=== PATIENT | male | born 1965 | race Caucasian/White ===

== ENCOUNTER 2016-09-04 13:24 | Emergency (ER) | payer MEDICARE ==
[2015-01-23 17:59] VITALS: BMI 27.1
[~2016-09-04 13:24] MED LIST: AMBIEN10 MG PO; ASPIRIN325 MG PO; OXY IR30 MG PO; REQUIP1 MG PO; XANAX1 MG PO
[2016-10-18] MEDS ORDERED: HYDROCODONE-APA1 TAB PO (12:39)
[2016-10-18] MEDS ORDERED: XANAX2 MG PO (12:39)
[2016-10-18] MEDS ORDERED: IMITREX100 MG PO (12:40)
[2016-10-18] MEDS ORDERED: DALIRESP500 MCG PO (12:40)
[2016-10-18] MEDS ORDERED: BREO ELLIPTA 11 EACH INH (12:41)
== END 2016-09-04 16:00 | disposition home or self-care (01) ==
LOC: D.ER 13:24
DX: M75.92 Shoulder lesion, unspecified, left shoulder (principal); M77.02 Medial epicondylitis, left elbow; Z86.73 Personal history of transient ischemic attack (TIA), and cerebral infarction without residual deficits; F17.200 Nicotine dependence, unspecified, uncomplicated

== ENCOUNTER → 2016-10-10 07:19 | Outpatient (CLI) | payer MEDICARE ==
[2015-01-23 17:59] VITALS: BMI 27.1
== END ==
LOC: D.MRI 09-27 15:00
DX: M25.512 Pain in left shoulder (principal)

== ENCOUNTER 2016-10-19 05:29 | Day surgery (SDC) | payer MEDICARE ==
[2016-10-18 13:35] LABS: APTT 21.4 SECONDS (22.8-39.4); INR 0.93 (0.85-1.17); PROTIME 12.3 SECONDS (11.6-15.0)
[2016-10-18 13:41] LABS: BASOPHILS 0.2 % (0-2); EOSINOPHILS 2.8 % (0-7); HEMATOCRIT 45.2 % (42.0-54.0); HEMOGLOBIN 15.1 g/dL (13.5-17.5); IMMATURE GRANULOCYTES 0.1 % (0-5); LYMPHOCYTES 40.7 % (15-50); MCH 33.6 pg (26.0-34.0); MCHC 33.4 g/dL (31.0-37.0); MCV 100.4 fL (80.0-100.0); MEAN PLATELET VOLUME 10.2 fL (7.4-10.4); MONOCYTES 7.5 % (2-11); NEUTROPHILS 48.7 % (40-80); PLATELET COUNT 181 10x3/uL (130-400); RDW 11.9 % (11.5-14.5); WBC 8.1 10x3/uL (4.8-10.8)
[2016-10-18 13:47] LABS: ALBUMIN 4.1 g/dL (3.4-5.0); ALKALINE PHOSPHATASE 100 U/L (46-116); ALT (SGPT) 19 U/L (10-68); BILIRUBIN - TOTAL 0.44 mg/dL (0.2-1.3); CALC OSMOLALITY 278 mosm/kg (275-300); CALCIUM 9.1 mg/dL (8.5-10.1); CARBON DIOXIDE 23.8 mmol/L (21.0-32.0); CHLORIDE - SERUM 104 mmol/L (98-107); CREATININE - SERUM 0.9 mg/dL (0.6-1.3); GLUCOSE 113 mg/dL (74-106); PROTEIN - SERUM 7.6 g/dL (6.4-8.2); SODIUM 139 mmol/L (136-145); UREA NITROGEN 13 mg/dL (7-18); eGFR NON AFRICAN AMERICAN > 90 mL/min (90-120)
[~2016-10-19] VITALS: Ht 180.3 cm; Wt 90.7 kg
[~2016-10-19 05:29] MED LIST changes: +BREO ELLIPTA 11 EACH INH; +DALIRESP500 MCG PO; +HYDROCODONE-APA1 TAB PO; +IMITREX100 MG PO; +XANAX2 MG PO
[2016-10-19 11:02] VITALS: BP 129/85; Ht 180.3 cm; Wt 90.7 kg
[2016-10-19] MEDS ORDERED: HYDROCODONE-APA1 TAB PO (15:13)
--- NOTE | 2016-10-19 15:14 | NUR ---
ANESTHESIA CONSULTED ABOUT BP AND ORDRED HYDRALIZINE IV
--- NOTE | 2016-10-27 11:39 | OP ---
PATIENT NAME: YULIYA SUNG MEDICAL RECORD: [id number] :61 [facility] DATE: SURGEON: ODESSA HAN MD DATE OF OPERATION: 10/19/2016 Orthopedic Surgery Operative Note PREOPERATIVE DIAGNOSES: Rotator cuff tear of the left shoulder, acromioclavicular arthritis of the left shoulder, and impingement syndrome of the left shoulder. POSTOPERATIVE DIAGNOSES: Rotator cuff tear of the left shoulder, acromioclavicular arthritis of the left shoulder, and impingement syndrome of the left shoulder. PROCEDURES: 1. Arthroscopic rotator cuff repair of the shoulder. 2. Arthroscopic distal clavicle excision of the left shoulder. 3. Arthroscopic subacromial decompression with acromioplasty and bursectomy. SURGEON: Odessa Han MD. ANESTHESIA: General. INTRAOPERATIVE COMPLICATIONS: Essentially none. SUMMARY OF PATHOLOGIC FINDINGS: The patient had excoriation of the coracoacromial ligament consistent with the preoperative diagnosis of impingement, full-thickness rotator cuff tearing was noted, and the patient had acromioclavicular arthritis. OPERATIVE SUMMARY IN DETAIL: After obtaining the appropriate preoperative orthopedic surgery consent as well as anesthetic consultation, evaluation and clearance, the patient was brought to the operating room and placed on the operating table in supine position. After adequate general laryngeal mask was administered, the patient was placed in the right lateral decubitus position. All pressure points were well padded to include down leg peroneal nerve pad and the patient was held firmly to the operating table using the vacuum pack suction system. The patient's left upper extremity and shoulder were then prepped and draped in a routine sterile fashion. The arm was held in the [employer] traction boom at 30 degrees of forward flexion, 30 degrees of abduction with 10 pounds of traction laterally. Arthroscopy was established in the glenohumeral joint from a posterior portal. Anterior portal was established in the anterior safe interval. Diagnostic arthroscopy did reveal the above findings. The patient had full thickness rotator cuff tearing. Transrotator cuff tear portal was created to debride the undersurface of the rotator cuff tearing as well as decorticate the supraspinatus tendinous footprint. Attention was then turned to the subacromial space. While in the subacromial space, Scammon tissue ablation system was utilized to denude the undersurface of the acromion of all soft tissue elements and released the coracoacromial ligament. Having completed this, a 5-0 barrel shana was used to perform acromioplasty at the level of acromioclavicular joint. Then through a separate arthroscopic anterior portal and direct arthroscopic visualization, distal 1 cm of the clavicle was excised. Next, attention was turned to the rotator cuff tear. A single #2 FiberTape was placed in an inverted mattress style fashion and anchored laterally using a 5.5 OPERATIVE REPORT [id number] YULIYA SUNG from [employer]. Having completed this, arthroscopy portals were closed in routine interrupted fashion using 4-0 Prolene. Sterile dressings were applied. The patient was awakened, taken to recovery room in stable condition. All final needle and sponge counts were correct. TRANSINT:[id number] Voice Confirmation ID: [id number] DOCUMENT ID: [id number] EMELY PEPE, ODESSA MATHIS at 1139 CC: [id number] DICTATION DATE: 10/26/162056 SUPERVISOR TUNNEL HEADING: 10/27/16 0331 [facility] 10/19/16 [id number] [place] [address]
== END 2016-10-19 17:30 | disposition home or self-care (01) ==
LOC: D.OPS 05:29 → D.PAN 12:00 → D.OPS 17:30 → D.PAN 17:45
PROVIDERS: Anesthesiology
DX: M75.102 Unspecified rotator cuff tear or rupture of left shoulder, not specified as traumatic (principal); M75.42 Impingement syndrome of left shoulder; F17.200 Nicotine dependence, unspecified, uncomplicated; Z01.812 Encounter for preprocedural laboratory examination

== ENCOUNTER 2016-10-21 11:59 | Emergency (ER) | payer MEDICARE ==
[2016-10-19 11:02] VITALS: BMI 27.9
== END 2016-10-21 13:15 | disposition home or self-care (01) ==
LOC: D.ER 11:59
DX: G89.18 Other acute postprocedural pain (principal); Z86.73 Personal history of transient ischemic attack (TIA), and cerebral infarction without residual deficits; F17.200 Nicotine dependence, unspecified, uncomplicated

== ENCOUNTER 2016-11-04 13:46 | Emergency (ER) | payer MEDICARE ==
[2016-10-19 11:02] VITALS: BMI 27.9
== END 2016-11-04 14:46 | disposition home or self-care (01) ==
LOC: D.ER 13:46
DX: G89.18 Other acute postprocedural pain (principal); M25.512 Pain in left shoulder; F17.200 Nicotine dependence, unspecified, uncomplicated

== ENCOUNTER → 2016-12-05 13:21 | Outpatient (CLI) | payer MEDICARE ==
[2016-10-19 11:02] VITALS: BMI 27.9
== END | disposition home or self-care (01) ==
LOC: D.LAB 13:21
DX: Z12.5 Encounter for screening for malignant neoplasm of prostate (principal)

== ENCOUNTER 2016-12-05 14:13 | Emergency (ER) | payer MEDICARE ==
[2016-10-19 11:02] VITALS: BMI 27.9
== END 2016-12-05 16:09 | disposition home or self-care (01) ==
LOC: D.ER 14:13
DX: M25.562 Pain in left knee (principal); M25.50 Pain in unspecified joint; G89.18 Other acute postprocedural pain

== ENCOUNTER 2017-02-25 19:57 | Emergency (ER) | payer MEDICARE ==
[2016-10-19 11:02] VITALS: BMI 27.9
[2017-02-25 20:26] LABS: BASOPHILS 0.4 % (0-2); EOSINOPHILS 6.8 % (0-7); HEMATOCRIT 40.4 % (42.0-54.0); HEMOGLOBIN 13.9 g/dL (13.5-17.5); IMMATURE GRANULOCYTES 0.1 % (0-5); LYMPHOCYTES 42.6 % (15-50); MCH 33.6 pg (26.0-34.0); MCHC 34.4 g/dL (31.0-37.0); MCV 97.6 fL (80.0-100.0); MEAN PLATELET VOLUME 10.8 fL (7.4-10.4); NEUTROPHILS 43.1 % (40-80); PLATELET COUNT 180 10x3/uL (130-400); RBC 4.14 10x6/uL (4.20-6.10); WBC 6.7 10x3/uL (4.8-10.8)
[2017-02-25 20:35] LABS: APTT 27.4 SECONDS (22.8-39.4)
[2017-02-25 20:41] LABS: ALBUMIN 3.6 g/dL (3.4-5.0); ALKALINE PHOSPHATASE 95 U/L (46-116); ALT (SGPT) 19 U/L (10-68); BILIRUBIN - TOTAL 0.37 mg/dL (0.2-1.3); CALC OSMOLALITY 276 mosm/kg (275-300); CALCIUM 8.4 mg/dL (8.5-10.1); CARBON DIOXIDE 27.5 mmol/L (21.0-32.0); CHLORIDE - SERUM 106 mmol/L (98-107); CREATININE - SERUM 1.3 mg/dL (0.6-1.3); GLUCOSE 97 mg/dL (74-106); POTASSIUM - SERUM 3.9 mmol/L (3.5-5.1); PROTEIN - SERUM 6.9 g/dL (6.4-8.2); SODIUM 140 mmol/L (136-145); UREA NITROGEN 8 mg/dL (7-18); eGFR NON AFRICAN AMERICAN 61 mL/min (90-120)
[2017-02-25 20:44] LABS: LIPASE 63 U/L (73-393)
[2017-02-25 20:52] LABS: TROPONIN-I < 0.017 ng/mL (0.000-0.060)
[2017-02-25 21:27] LABS: APPEARANCE CLEAR (CLEAR); BILIRUBIN NEGATIVE (NEGATIVE); COLOR YELLOW (YELLOW); GLUCOSE NEGATIVE (NEGATIVE); KETONE NEGATIVE (NEGATIVE); LEUKOCYTE ESTERASE NEGATIVE (NEGATIVE); NITRITE NEGATIVE (NEGATIVE); PROTEIN NEGATIVE (NEGATIVE); UROBILINOGEN NORMAL (NORMAL)
[2017-02-25 21:34] LABS: UDS - AMPHET NEGATIVE QUAL (NEGATIVE); UDS - BARB NEGATIVE QUAL (NEGATIVE); UDS - BENZO POSITIVE QUAL (NEGATIVE); UDS - COCAINE NEGATIVE QUAL (NEGATIVE); UDS - METH NEGATIVE QUAL (NEGATIVE); UDS - OPIATE POSITIVE QUAL (NEGATIVE); UDS - PCP NEGATIVE QUAL (NEGATIVE); UDS - THC NEGATIVE QUAL (NEGATIVE)
== END 2017-02-26 00:51 | disposition home or self-care (01) ==
LOC: D.ER 19:57
PROVIDERS: Emergency Medicine
DX: R53.81 Other malaise (principal); R42 Dizziness and giddiness; I45.10 Unspecified right bundle-branch block

== ENCOUNTER → 2017-06-06 09:10 | Outpatient (CLI) | payer MEDICARE ==
[2016-10-19 11:02] VITALS: BMI 27.9
== END | disposition home or self-care (01) ==
LOC: D.US 09:10
DX: R10.9 Unspecified abdominal pain (principal)

== ENCOUNTER → 2018-05-07 13:28 | Outpatient (CLI) | payer MEDICARE, MEDICAID ==
[2016-10-19 11:02] VITALS: BMI 27.9
== END | disposition home or self-care (01) ==
LOC: D.MRI 05-06 11:00
DX: M25.562 Pain in left knee (principal)

== ENCOUNTER → 2019-02-03 15:57 | Outpatient (CLI) | payer OTHER, MEDICAID ==
[2016-10-19 11:02] VITALS: BMI 27.9
[~2019-02-03 15:57] MED LIST changes: +NAPROSYN500 MG PO
[2019-02-03 16:40] LABS: BASOPHILS 0.3 % (0-2); HEMATOCRIT 41.1 % (42.0-54.0); IMMATURE GRANULOCYTES 0.8 % (0-5); LYMPHOCYTES 35.3 % (15-50); MCH 35.1 pg (26.0-34.0); MCHC 34.1 g/dL (31.0-37.0); MEAN PLATELET VOLUME 9.7 fL (7.4-10.4); MONOCYTES 6.5 % (2-11); NEUTROPHILS 55.1 % (40-80); PLATELET COUNT 163 10x3/uL (130-400); RBC 3.99 10x6/uL (4.20-6.10); RDW 12.7 % (11.5-14.5); WBC 7.6 10x3/uL (4.8-10.8)
[2019-02-03 17:28] LABS: ALBUMIN 3.7 g/dL (3.4-5.0); ANION GAP 11.1 mmol/L (8-16); BILIRUBIN - TOTAL 0.26 mg/dL (0.2-1.3); CALCIUM 9.2 mg/dL (8.5-10.1); CHOL - HDL RATIO 3.3 ratio (2.3-4.9); CREATININE - SERUM 1.1 mg/dL (0.6-1.3); LDL-HDL RATIO 1.6 ratio (1.5-3.5); POTASSIUM - SERUM 5.1 mmol/L (3.5-5.1); PROTEIN - SERUM 6.9 g/dL (6.4-8.2); THYROID STIMULATING HORMONE 5.29 uIU/mL (0.36-3.74)
== END | disposition home or self-care (01) ==
LOC: D.LAB 15:57
PROVIDERS: ATTEND Family Medicine
DX: J44.9 Chronic obstructive pulmonary disease, unspecified (principal); E03.9 Hypothyroidism, unspecified; Z13.6 Encounter for screening for cardiovascular disorders

== ENCOUNTER 2019-02-18 22:05 | Emergency (ER) | payer OTHER, MEDICAID ==
[~2019-02-18] VITALS: Ht 180.3 cm; Wt 78.2 kg
[~2019-02-18 22:05] MED LIST changes: -NAPROSYN500 MG PO
[2019-02-18 22:35] VITALS: Ht 180.3 cm; Wt 78.2 kg
[2019-02-18 23:51] LABS: APPEARANCE CLEAR (CLEAR); BILIRUBIN NEGATIVE (NEGATIVE); COLOR YELLOW (YELLOW); GLUCOSE NEGATIVE (NEGATIVE); KETONE NEGATIVE (NEGATIVE); NITRITE NEGATIVE (NEGATIVE); PROTEIN NEGATIVE (NEGATIVE); SPECIFIC GRAVITY 1.025 (1.005-1.020); UROBILINOGEN NORMAL (NORMAL)
[2019-02-18 23:54] LABS: BACTERIA NONE SEEN /hpf (NONE SEEN); EPITHELIAL CELLS NSEEN /hpf (0-5); RED CELLS - URINE 0-5 /hpf (0-5); WHITE CELLS - URINE 0-5 /hpf (0-5)
[2019-02-19 00:03] LABS: HEMATOCRIT 40.9 % (42.0-54.0); HEMOGLOBIN 14.2 g/dL (13.5-17.5); LYMPHOCYTES 28.7 % (15-50); MCH 34.6 pg (26.0-34.0); MCHC 34.7 g/dL (31.0-37.0); MCV 99.8 fL (80.0-100.0); MEAN PLATELET VOLUME 9.6 fL (7.4-10.4); NEUTROPHILS 65.5 % (40-80); PLATELET COUNT 192 10x3/uL (130-400); RDW 12.2 % (11.5-14.5); WBC 8.6 10x3/uL (4.8-10.8)
[2019-02-19 00:17] LABS: ALBUMIN 3.9 g/dL (3.4-5.0); ALKALINE PHOSPHATASE 88 U/L (46-116); ALT (SGPT) 16 U/L (10-68); AMYLASE - SERUM 58 U/L (25-115); CALC OSMOLALITY 284 mosm/kg (275-300); CALCIUM 8.7 mg/dL (8.5-10.1); CARBON DIOXIDE 24.4 mmol/L (21.0-32.0); CHLORIDE - SERUM 110 mmol/L (98-107); CREATININE - SERUM 0.8 mg/dL (0.6-1.3); GLUCOSE 86 mg/dL (74-106); LIPASE 127 U/L (73-393); POTASSIUM - SERUM 4.2 mmol/L (3.5-5.1); PROTEIN - SERUM 7.5 g/dL (6.4-8.2); SODIUM 144 mmol/L (136-145); UREA NITROGEN 11 mg/dL (7-18); eGFR NON AFRICAN AMERICAN > 90 mL/min (90-120)
[2019-02-19] MEDS ORDERED: NAPROSYN500 MG PO (01:56)
[2019-02-19 02:35] VITALS: BP 143/98
== END 2019-02-19 02:35 | disposition home or self-care (01) ==
LOC: D.ER 22:05
PROVIDERS: Family Medicine
DX: S20.212A Contusion of left front wall of thorax, initial encounter (principal); Y04.2XXA Assault by strike against or bumped into by another person, initial encounter; Y93.89 Activity, other specified; Y92.89 Other specified places as the place of occurrence of the external cause

== ENCOUNTER 2019-11-06 13:48 | Inpatient (IN) | payer MEDICARE, MEDICAID ==
[~2019-11-06] VITALS: Ht 180.3 cm; Wt 79.4 kg
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
[~2019-11-06 13:48] MED LIST changes: +NAPROSYN500 MG PO
[2019-11-06] MEDS ORDERED: VENTOLIN HFA [SP8 GM INH (16:03)
[2019-11-06] MEDS ORDERED: XANAX1 MG PO (16:04)
[2019-11-06] MEDS ORDERED: SUMATRIPTAN SUC25 MG PO (16:04)
[2019-11-06] MEDS ORDERED: SOMA350 MG PO (16:05)
[2019-11-06] MEDS ORDERED: FOLIC ACID1 MG PO (16:06)
[2019-11-06] MEDS ORDERED: LUNESTA2 M1 PO (16:06)
[2019-11-06] MEDS ORDERED: MULTI-DAY VITAM1 TAB PO (16:08)
[2019-11-06 16:09] VITALS: BP 98/62; BMI 24.4
[2019-11-06] MEDS ORDERED: REQUIP5 MG PO (16:09)
[2019-11-06] MEDS ORDERED: VITAMIN E200 UNI1 PO (16:09)
--- NOTE | 2019-11-06 16:36 | NUR ---
PT HAS SWOLLEN PENIS AND SCROTUM. DENIES PROBLEMS URINATING. ALSO HE TWO DRESESINGS ARE ALMOST ON HIS WAIST LINE, ANTERIOR. SMALL PATCH OF SCABS TO RT ELBOW AREA. HE IS NWB TO LLE, ABLE TO TRANSFER FROM TO BED WITH MIN ASST. HE C/O PAIN TO HIPS. PEDAL PULSES PRESENT X2
--- NOTE | 2019-11-06 19:30 | NUR ---
PATIENT RECEIVED SITTING UP IN BED. VITAL SIGNS & ASSESSMENT DONE. SCROTUM AREA BRUISED & 4 PLUS SWELLING. PATIENT ASSIST WITH TURNING TO RIGHT SIDE TO URINATE. PATIENT HAD 400 CC OF NEENA COLORED URINE. PATIENT PANTS REMOVED D/T URINE SPILL. PATIENT MEAL MICROWAVED & SETUP IN FRONT OF HIM. PATIENT WASHED HANDS WITH SOAPY WASHCLOTH. CALL LIGHT WITHIN REACH. WILL CONTINUE TO MONITOR.
[2019-11-06 19:58] VITALS: BP 128/70
--- NOTE | 2019-11-06 22:25 | NUR ---
PATIENT TURNED TO GET ON BEDPAN WITH 2 PERSON ASSIST. NO BM. BED LOW. CALL LIGHT WITHIN REACH. WILL CONTINUE TO MONITOR.
--- NOTE | 2019-11-07 00:23 | NUR ---
I have reviewed this patient and I concur with the Shift Assessment completed by the Licensed Practical Nurse today this shift.
--- NOTE | 2019-11-07 02:30 | NUR ---
PATIENT ASSIST ONTO SIDE OF BED. PATIENT VOID IN URINAL. PATIENT SLOWLY TRANSFERRED INTO WHEELCHAIR WITH ASSIST. PATIENT BED CHANGED OUT FOR BED WITH TRAPEZE TO ASSIST PATIENT'S MOBILITY IN BED. PATIENT HAD BM SMEAR ON PAD. PATIENT STOOD UP SLOWLY OUT OF WHEELCHAIR & GOT INTO BED WITH TRAPEZE. PATIENT MADE COMFORTABLE. FAN ON. AIR ON. BED LOW. CALL LIGHT WITHIN REACH. WILL CONTINUE TO MONITOR.
--- NOTE | 2019-11-07 02:50 | NUR ---
PATIENT C/O PAIN LEVEL 10 . PATIENT GIVEN PAIN MEDICATION PER ORDER. BED LOW. CALL LIGHT WITHIN REACH. WILL CONTINUE TO MONITOR.
[2019-11-07 08:00] VITALS: BP 115/68
[2019-11-07 08:40] LABS: BASOPHILS 0.1 % (0-2); EOSINOPHILS 1.8 % (0-7); HEMATOCRIT 28.5 % (42.0-54.0); HEMOGLOBIN 8.9 g/dL (13.5-17.5); LYMPHOCYTES 16.4 % (15-50); MCH 30.3 pg (26.0-34.0); MCHC 31.2 g/dL (31.0-37.0); MCV 96.9 fL (80.0-100.0); MONOCYTES 10.3 % (2-11); NEUTROPHILS 70.4 % (40-80); RBC 2.94 10x6/uL (4.20-6.10); RDW 16.5 % (11.5-14.5); WBC 8.4 10x3/uL (4.8-10.8)
[2019-11-07 08:52] LABS: PLATELET COUNT 260 10x3/uL (130-400)
[2019-11-07 08:53] LABS: CALC OSMOLALITY 268 mosm/kg (275-300); CALCIUM 8.1 mg/dL (8.5-10.1); CARBON DIOXIDE 19.5 mmol/L (21.0-32.0); CHLORIDE - SERUM 101 mmol/L (98-107); CREATININE - SERUM 0.8 mg/dL (0.6-1.3); GLUCOSE 94 mg/dL (74-106); POTASSIUM - SERUM 4.6 mmol/L (3.5-5.1); SODIUM 134 mmol/L (136-145); UREA NITROGEN 14 mg/dL (7-18); eGFR NON AFRICAN AMERICAN > 90 mL/min (90-120)
--- NOTE | 2019-11-07 12:10 | NUR ---
SITTING UP IN BED IN RO0M. C/O PAIN TO HIPS AND LEGS. PAIN MEDS GIVEN ORDERED AND REQUESTED. SPEECH THERAPIST IS WORKING WITH HIM IN ROOM. HE HAS SEVERE BRUISING TO RT HIP AND FLANK AND LEG
--- NOTE | 2019-11-07 12:18 | NUR ---
PATIENT ADMITTED TO REHAB FROM [facility]. PATIENT LIVES IN THE [facility] AND PLANS ON DISCHARGING BACK TO HIS HOME. WILL CONTINUE TO FOLLOW WITH PATIENT.
[2019-11-07 13:36] VITALS: Ht 180.3 cm; Wt 79.4 kg
--- NOTE | 2019-11-07 15:02 | NUR ---
LAYING IN BED IN ROOM. IS ANXIOUS, ASKING ABOUT A LIST OF HIS MEDS, WHEN HE CAN HAVE MORE MEDS, CAN THE STRENGTH BE INCREASED TO HIS MEDS.....USES OVER HEAD FRAME TO MOVE BODY IN BED. CALL LIGHT IN REACH. BED IN LOWEST POSITION, SIDE RAILS UP X2.
--- NOTE | 2019-11-07 16:52 | NUR ---
STILL IN DIALYSIS
[2019-11-07 20:30] VITALS: BP 110/78
--- NOTE | 2019-11-07 21:10 | NUR ---
PT REPORTS PAIN 8/10 TO HIS HIPS AND BACK. 800 YELLOW URINE EMPTIED FROM URINAL. DRESSINGS TO BILATERAL HIPS ARE CLEAN, DRY AND INTACT. HE HAS GENERALIZED BRUISING TO THE RIGHT FLANK, HIP AND THIGH. NORCO AND SOMA GIVEN. HIS BED IS LOW AND CALL LIGHT WITHIN REACH. WARMED HIS DINNER UP REQUESTED. HE DENIES FURTHER NEEDS.
[2019-11-08 08:00] VITALS: BP 93/54
--- NOTE | 2019-11-08 08:00 | NUR ---
SHIFT ASSMT COMPLETED.
--- NOTE | 2019-11-08 12:00 | NUR ---
STATES NO APPETITE.CL IN REACH.
--- NOTE | 2019-11-08 16:00 | NUR ---
[place] PT BUT WAS UNABLE TO PARTICIPATE IN OT D/T NOT FEELING GOOD.REQUEST THERAPY BE AFTER 1200 EACH DAY.
--- NOTE | 2019-11-08 20:27 | NUR ---
AWAKE,ALERT.COMPLAINTS OF SACRAL PAIN WITH MOVEMENT. ASSISTED UP TO SIDE OF BED WITH MINIMAL ASSIST. PATIENT USING TRAPEZE BAR TO AID WITH MOVEMENT. SOMA GIVEN PER REQUEST FOR PAIN RELIEF. CALL LIGHT IN REACH
[2019-11-08 20:30] VITALS: BP 97/68
--- NOTE | 2019-11-09 00:27 | NUR ---
I have reviewed this patient and I concur with the Shift Assessment completed by the Licensed Practical Nurse today this shift.
[2019-11-09 08:00] VITALS: BP 100/65
--- NOTE | 2019-11-09 08:00 | NUR ---
SHIFT ASSMT COMPLETED.STATES SHIVERING AND SWEATED LAST NIGHT.REPORTS DID NOT REST WELL.
--- NOTE | 2019-11-09 12:40 | NUR ---
SITTING UP IN CHAIR.C/O BURNING SENSATION ACROSS LOWER ABD.TAKEN TO BATHROOM.
--- NOTE | 2019-11-09 14:00 | NUR ---
XRAY PELVIS ORDERED.ASSISTED BACK TO BED.DID HAVE A SMALL BM EARLIER.
--- NOTE | 2019-11-09 19:30 | NUR ---
RESTING QUEITLY WITH NO COMPLAINS AT PRESENT.NO DISTRESS NOTED. CL IN REACH
[2019-11-09 20:00] VITALS: BP 116/71
--- NOTE | 2019-11-10 05:05 | NUR ---
I have reviewed this patient and I concur with the Shift Assessment completed by the Licensed Practical Nurse today this shift.
--- NOTE | 2019-11-10 13:16 | NUR ---
IS ANXIOUS AND SEEMS STRESSED. IS ASKING FOR MORE MEDS OFTEN, STATING HE WANTS TO GO HOME. EXPLAINED ABOUT AMA AND NO MEDS GIVEN AFTER PT AMA'S. HE STATED HE WILL NEEDS DC MEDS BUT INSISTS HE CAN BE FINE AT HOME. HE IS ABLE TO TRANSFER BACK AND FORTH FROM BED TO WC BY SELF. HE USES OVER HEAD FRAME TO MOVE AROUND. LARGE BRUISED AREA TO RT SIDE. INCISION TO WAIST LINE ARE OPEN TO AIR AND HAVE NO S/S INFECTION. SUTURES NOTED TO INCISION. HE REMAINS NWB TO LLE.
--- NOTE | 2019-11-10 22:45 | NUR ---
PT IN BED, TRAY ON TABLE, C/O PAIN NOT DUE UNTIL 2129, REPOSITIONED PT, NO OTHER NEEDS NOTED, TRAPEZE BED, FLUIDS/CALL LIGHT WITHIN REACH
[2019-11-11 00:12] VITALS: BP 137/82
--- NOTE | 2019-11-11 01:01 | NUR ---
PT ASLEEP, AROUSES EASILY TO VOICE, NO NEEDS NOTED, FLUIDS/CALL LIGHT WITHIN REACH PICKED UP CLOTHES/SATCHEL FROM ED DELIVERED TO PT ROOM
--- NOTE | 2019-11-11 03:37 | NUR ---
PT C/O PAIN 02/01, PRN PCT GIVEN WILL CONTINUE TO MONITOR
[2019-11-11 07:53] VITALS: BP 107/65
--- NOTE | 2019-11-11 08:47 | NUR ---
RESTING IN BED WITH EYES CLOSED, V/S AND ASSESSMENT COMPLETE, DENIES ANY NEEDS AT THIS TIME, C/L AND FLUIDS IN REACH.
--- NOTE | 2019-11-11 09:21 | NUR ---
PATIENT IS IN NEED OF A WHEELCHAIR DUE TO BEING NON WEIGHT BEARING TO HIS LOWER EXTREMETIES AT THIS TIME. A CANE AND WALKER HAS BEEN TRIED WITHOUT SUCCESS.PATIENT CAN SAFELY PROPEL HIMSELF IN HIS APARTMENT WHERE THERE IS AMPLE ROOM.
--- NOTE | 2019-11-11 09:56 | NUR ---
I have reviewed this patient and I concur with the Shift Assessment completed by the Licensed Practical Nurse today this shift.
--- NOTE | 2019-11-11 11:39 | NUR ---
PATIENT DISCHARGING HOME TODAY WITH FRIENDS. [facility] WILL PROVIDE THERAPY AT HOME. [facility] WILL DELIVER A WHEELCHAIR TO PATIENT. MIKE SANCHEZ APN 11/25/19 @ 9:00. YESI SIGNED, IMM SERVED AND EXPLAINED, ONE GIVEN TO PATIENT AND ONE FILED IN CHART NO COMPARE DATA REVIEWED PER PATIENT REQUEST. DISCHARGE INSTRUCTIONS FAXED TO PCP, HOME HEALTH AND REVIEWED WITH PATIENT PER PRIMARY NURSE.
--- NOTE | 2019-11-11 11:57 | NUR ---
AWAKE AND ALERT SITTING UP IN BED WATCHING TV, DENIES ANY NEEDS AT THIS TIME, C/L AND FLUIDS IN REACH.
[2019-11-11] MEDS ORDERED: PERCOCET 10-321 EAC1 PO (13:22)
--- NOTE | 2019-11-11 15:49 | NUR ---
DISCHARGED HOME WITH ALL PERSONAL BELONGINGS, REVIEWED MEDICATIONS AND FOLLOW UP APPOINTMENTS, PERSCRIPTIONS GIVEN, CALLED IN MEDICATIONS TO [facility].
== END 2019-11-11 15:40 | disposition home health service (06) | DRG 561 ==
LOC: D.REHAB 13:48
PROVIDERS: ADMIT Emergency Medicine; ATTEND Emergency Medicine
DX: S32.82XD Multiple fractures of pelvis without disruption of pelvic ring, subsequent encounter for fracture with routine healing (principal); V09.9XXD Pedestrian injured in unspecified transport accident, subsequent encounter; F10.10 Alcohol abuse, uncomplicated; G89.29 Other chronic pain; B19.20 Unspecified viral hepatitis C without hepatic coma; M06.9 Rheumatoid arthritis, unspecified; F17.200 Nicotine dependence, unspecified, uncomplicated; S22.49XD Multiple fractures of ribs, unspecified side, subsequent encounter for fracture with routine healing; S32.059D Unspecified fracture of fifth lumbar vertebra, subsequent encounter for fracture with routine healing; S32.10XD Unspecified fracture of sacrum, subsequent encounter for fracture with routine healing